=== PATIENT | female | born 1960 | race Hispanic/Latino ===

== ENCOUNTER 2023-05-04 06:31 | Day surgery (SDC) | payer OTHER, MEDICARE ==
[2023-04-30 11:04] LABS: BASOPHILS # (AUTO) 0.05 K/uL (0.00-0.20); BASOPHILS % (AUTO) 0.4 % (0.0-5.0); EOSINOPHILS % (AUTO) 4.1 % (0.0-8.0); IMMATURE GRANULOCYTE ABSOLUTE 0.11 K/uL (0-1); LYMPHOCYTES # (AUTO) 2.1 K/uL (1.0-4.8); LYMPHOCYTES % (AUTO) 17.2 % (21.0-51.0); MEAN CORPUSCULAR HEMOGLOBIN 32.2 pg (27.0-33.0); MEAN CORPUSCULAR HGB CONC 31.2 g/dL (32.0-36.0); MEAN CORPUSCULAR VOLUME 103.3 fL (79-99); MONOCYTES # (AUTO) 0.9 K/uL (0.1-1.0); MONOCYTES % (AUTO) 7.1 % (3.0-13.0); NEUTROPHILS # (AUTO) 8.6 K/uL (1.8-7.7); NEUTROPHILS % (AUTO) 70.3 % (40.0-77.0); PLATELET COUNT (AUTO) 232 K/uL (130-400); RED BLOOD CELL COUNT(AUTO) 3.29 MIL/uL (4.00-5.50); RED CELL DISTRIBUTION WIDTH 12.6 % (11.0-15.5); WHITE BLOOD COUNT (AUTO) 12.2 K/uL (4.8-10.8)
[2023-04-30 11:09] VITALS: BP 168/69; PULSE 72; RESP 16
[2023-04-30 11:14] LABS: INR 0.93 (0.85-1.15); PROTHROMBIN TIME 10.7 SEC (9.6-11.6)
[2023-04-30 11:16] LABS: PARTIAL THROMBOPLASTIN TIME 25.6 SEC (26.3-35.5)
[2023-04-30 11:18] LABS: ALBUMIN 3.3 g/dL (3.5-5.0); BILIRUBIN,TOTAL 0.3 mg/dL (0.2-1.0); CREATININE 6.4 mg/dL (0.5-1.5); POTASSIUM 5.1 mmol/L (3.5-5.1); TOTAL PROTEIN, SERUM 8.3 g/dL (6.0-8.3)
[~2023-05-04] VITALS: Ht 160 cm; Wt 110.8 kg
[2023-05-04] VITALS (18 sets, daily range): BP systolic 136–190; BP diastolic 57–99; PULSE 69–85; RESP 15–20
[~2023-05-04 06:31] MED LIST: AMLO-258 PO; CARV6.25 PO; FERR325T22 PO; HYDR-4153 PO; SUCR500T PO
[2023-05-04] MEDS ORDERED: 0.9% NACL 500ML IV.SOLN 500 ML IV ONE (06:51)
[2023-05-04] MEDS: CEFAZOLIN SODIUM 2 GM VIAL ONE ×2 (06:57→09:59)
[2023-05-04 08:54] LABS: CREATININE 8.8 mg/dL (0.5-1.5)
[2023-05-04] MEDS ORDERED: LIDOCAINE HCL 1% 20 ML VIAL ONE (09:31)
[2023-05-04] MEDS ORDERED: BUPIVACAINE/PF 0.25% 30ML VIAL IJ ONE (09:32)
[2023-05-04] MEDS ORDERED: LIDOCAINE PF 100MG/5ML (2%) SYRINGE 5ML ONE (09:38)
[2023-05-04] MEDS ORDERED: PROPOFOL 10 MG/ML 20ML VIAL IV ONE (09:38)
[2023-05-04] MEDS ORDERED: ROCURONIUM 10MG/1ML SYR 10 MG/ML ML ONE (09:38)
[2023-05-04] MEDS ORDERED: FENTANYL CITRATE PF 50 MCG/1 ML 2ML VIAL ONE (10:14)
[2023-05-04] MEDS ORDERED: 0.9%NACL 10ML VIAL ONE (10:52)
[2023-05-04] MEDS ORDERED: PHENYLEPHRINE HCL 10 MG/ML 1ML VIAL IV ONE (10:52)
[2023-05-04] MEDS ORDERED: HEPARIN 10,000 UNIT/10ML (1,000 UNIT/ML) VIAL ONE (11:00)
[2023-05-04] MEDS ORDERED: GLYCOPYRROLATE 1 MG/5 ML SYRINGE ONE (11:20)
[2023-05-04] MEDS ORDERED: NEOSTIGMINE 5MG/5ML SYR IV ONE (11:20)
[2023-05-04] MEDS ORDERED: ONDANSETRON 4MG INJ ONE (11:20)
[2023-05-04] MEDS ORDERED: PROTAMINE SULFATE 10 MG/ML 5 ML VIAL ONE (11:37)
[2023-05-04] MEDS ORDERED: HYDRALAZINE 20MG/ML VIAL ONE (12:27)
== END 2023-05-04 13:55 | disposition home or self-care (01) ==
LOC: DAH 06:31
PROVIDERS: ATTEND Student in an Organized Health Care Education/Training Program
DX: E11.22 Type 2 diabetes mellitus with diabetic chronic kidney disease (principal); Z20.822 Contact with and (suspected) exposure to COVID-19; I13.11 Hypertensive heart and chronic kidney disease without heart failure, with stage 5 chronic kidney disease, or end stage renal disease; N18.6 End stage renal disease; I25.10 Atherosclerotic heart disease of native coronary artery without angina pectoris; E78.5 Hyperlipidemia, unspecified; I49.3 Ventricular premature depolarization; Z79.899 Other long term (current) drug therapy; Z99.2 Dependence on renal dialysis; Z79.01 Long term (current) use of anticoagulants
CPT/HCPCS: 80053; 85025; 85610; 85730; 86850 ×2; 86900 ×2; 86901 ×2; 87426; 36415 ×2; 93005; 36830; 80048; 82948 ×2; A6260; A4663; A6207; C1768; J7040; J3010; J3490 ×2; J2710; J2001; J2720; J0360; J1644 ×2; J2704; J2405; J2371; J0690; A6206; A4649 ×2; C1713 ×2; A4215; A4223; A4222; A4221; G0168

== ENCOUNTER 2024-01-27 05:58 | Emergency (ER) | payer MEDICARE, OTHER ==
[~2024-01-27] VITALS: Ht 167.6 cm; Wt 119.3 kg
[~2024-01-27 05:58] MED LIST changes: -HYDR-4153 PO; +HYDR25TA67 PO
[2024-01-27] MEDS ORDERED: 0.9%NACL 1000ML 1,779 ML IV ONE (07:00)
[2024-01-27 07:02] LABS: INFLUENZA TYPE A Negative For Type A (NEGATIVE); INFLUENZA TYPE B Negative For Type B (NEGATIVE); SARS-CoV-2, RNA, NAAT NEGATIVE SARS CoV-2 (NEGATIVE)
[2024-01-27] MEDS: 0.9% NACL 250ML 250 ML IV SCH (07:46)
[2024-01-27] MEDS: KETOROLAC 30MG VIAL (30MG/ML) IVP ONE (07:46)
[2024-01-27 07:51] VITALS: BP 139/60; PULSE 84; RESP 18; O2SAT 96
[2024-01-27 07:59] LABS: RAPID GROUP A STREP positive (NEGATIVE)
[2024-01-27] MEDS: CEFTRIAXONE 2GM VIAL IVPB ONE (08:11)
[2024-01-27 08:15] LABS: BASOPHILS # (AUTO) 0.06 K/uL (0.00-0.20); BASOPHILS % (AUTO) 0.2 % (0.0-5.0); EOSINOPHILS # (AUTO) 0.24 K/uL (0.00-0.70); HEMATOCRIT 34.1 % (36-48); IMMATURE GRANULOCYTE ABSOLUTE 0.16 K/uL (0-1); LYMPHOCYTES # (AUTO) 1.1 K/uL (1.0-4.8); LYMPHOCYTES % (AUTO) 4.7 % (21.0-51.0); MEAN CORPUSCULAR HEMOGLOBIN 31.9 pg (27.0-33.0); MEAN CORPUSCULAR HGB CONC 32.6 g/dL (32.0-36.0); MONOCYTES # (AUTO) 0.9 K/uL (0.1-1.0); MONOCYTES % (AUTO) 3.7 % (3.0-13.0); NEUTROPHILS # (AUTO) 21.8 K/uL (1.8-7.7); NEUTROPHILS % (AUTO) 89.7 % (40.0-77.0); PLATELET COUNT (AUTO) 275 K/uL (130-400); RED BLOOD CELL COUNT(AUTO) 3.48 MIL/uL (4.00-5.50); RED CELL DISTRIBUTION WIDTH 14.7 % (11.0-15.5); WHITE BLOOD COUNT (AUTO) 24.3 K/uL (4.8-10.8)
[2024-01-27 08:22] LABS: INR <= 0.93 (0.85-1.15); PROTHROMBIN TIME 10.9 SEC (9.6-11.6)
[2024-01-27 08:23] LABS: PARTIAL THROMBOPLASTIN TIME 26.4 SEC (26.3-35.5)
[2024-01-27 08:26] LABS: ALBUMIN 3.1 g/dL (3.5-5.0); BILIRUBIN,TOTAL 0.4 mg/dL (0.2-1.0); POTASSIUM 5.4 mmol/L (3.5-5.1)
[2024-01-27] MEDS ORDERED: PENI500T2 PO (08:29)
[2024-01-27 08:48] LABS: CREATININE 9.2 mg/dL (0.5-1.0)
== END 2024-01-27 08:49 | disposition home or self-care (01) ==
LOC: EDH 05:58
DX: J02.0 Streptococcal pharyngitis (principal); E11.9 Type 2 diabetes mellitus without complications; E78.00 Pure hypercholesterolemia, unspecified; I10 Essential (primary) hypertension; Z79.899 Other long term (current) drug therapy; Z20.822 Contact with and (suspected) exposure to COVID-19
CPT/HCPCS: 99285; 96374; 71045; 87635; 96375; 82550; 84484; 80053; 85025; 85610; 85730; 87040 ×2; 87880; 87804 ×2; 83605; 36415; 93005; J0696; J1885